=== PATIENT | female | born 1960 | race Caucasian/White ===

== ENCOUNTER 2019-01-28 23:05 | Emergency (ER) | payer SELFPAY ==
--- NOTE | 2019-01-28 23:46 | RADIOLOGY REPORT (SQ) ---
EXAM DESCRIPTION: XR KNEE 4 OR MORE VIEWS COMPLETED DATE/TME: 01/28/2019 00:00 CLINICAL HISTORY: 58 years, Female, injury COMPARISON: None. NUMBER OF VIEWS: 4 TECHNIQUE: 4 view left knee LIMITATIONS: None. FINDINGS: Negative for fracture or dislocation. Soft tissues are unremarkable. Mild degenerative change of the patellofemoral compartment IMPRESSION: No acute osseous abnormality copyright 2010 [employer]- All Rights Reserved
--- NOTE | 2019-01-28 23:48 | RADIOLOGY REPORT (SQ) ---
EXAM DESCRIPTION: XR SHOULDER 2 OR MORE VIEWS COMPLETED DATE/TME: 01/28/2019 00:00 CLINICAL HISTORY: 58 years, Female, injury COMPARISON: None. NUMBER OF VIEWS: 3 TECHNIQUE: 3 view left shoulder LIMITATIONS: None. FINDINGS: Negative for fracture or dislocation. Soft tissues are unremarkable. Joint spaces are preserved IMPRESSION: Negative exam copyright 2010 [employer]- All Rights Reserved
--- NOTE | 2019-01-29 | RADIOLOGY REPORT (SQ) ---
EXAM DESCRIPTION: XR WRIST 3 OR MORE VIEWS COMPLETED DATE/TME: 01/28/2019 00:00 CLINICAL HISTORY: 58 years, Female, injury COMPARISON: None. NUMBER OF VIEWS: 3 TECHNIQUE: 3 view left wrist LIMITATIONS: None. FINDINGS: Osteopenia. Negative for acute fracture or dislocation. Probable benign bone island of the lunate bone. Soft tissues are unremarkable IMPRESSION: No acute osseous abnormality copyright 2010 [employer]- All Rights Reserved
--- NOTE | 2019-01-29 00:01 | RADIOLOGY REPORT (SQ) ---
EXAM DESCRIPTION: XR ELBOW 3 VIEWS COMPLETED DATE/TME: 01/28/2019 00:00 CLINICAL HISTORY: 58 years, Female, injury COMPARISON: None. NUMBER OF VIEWS: 3 TECHNIQUE: 3 view left elbow LIMITATIONS: None. FINDINGS: Osteopenia. Nondisplaced proximal radial neck fracture with associated hemarthrosis and visible abnormal fat pads. No dislocation. IMPRESSION: Nondisplaced proximal radial neck fracture with associated hemarthrosis copyright 2010 [employer]- All Rights Reserved
[2019-01-29] MEDS ORDERED: OXYCODONE-ACETAMINOPHEN 5-325 MG TABLET PO ONE (01:21)
[2019-01-29] MEDS ORDERED: DIPH/PERTUSS(ACELL)/TETANUS VAC/PF 0.5 ML SYR (>=10YO) IM ONE (01:32)
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
[2019-01-29 02:45] VITALS: BP 138/82
== END 2019-01-29 03:00 | disposition home or self-care (01) ==
LOC: ER 23:05
DX: S52.135A Nondisplaced fracture of neck of left radius, initial encounter for closed fracture (principal); S60.512A Abrasion of left hand, initial encounter; S80.812A Abrasion, left lower leg, initial encounter; S80.212A Abrasion, left knee, initial encounter; M25.562 Pain in left knee; V19.9XXA Pedal cyclist (driver) (passenger) injured in unspecified traffic accident, initial encounter; Y93.89 Activity, other specified; Z23 Encounter for immunization
CPT/HCPCS: 90471; 90715; 99283